=== PATIENT | female | born 1960 | race Caucasian/White ===

== ENCOUNTER 2019-05-12 15:30 | Emergency (ER) | payer OTHER ==
[~2019-05-12] VITALS: Ht 157.5 cm; Wt 68.4 kg
--- NOTE | 2019-05-12 16:01 | NUR ---
FIRST CONTACT WITH PT. PT SITTING UP IN [facility], NAD NOTED. PT REPORTS PERSISTANT DYSPNEA X ONE WEEK. SEEN IN [facility] FOR SAME ONE WEEK AGO, RX'D PREDNISONE AND INHALER WO IMPROVEMENT IN S/S. DENIES CP/FEVER/PRODUCTIVE COUGH/LE EDEMA OR PAIN/ORTHOPNEA. HX OF HTN AND HLD. NO PULMONARY HX; REMOTE SMOKING HX. PT SIDE LYING INITIALLY FOR COMFORT, ABLE TO ADJUST TO SEATED POSITION WO ASSISTANCE. EVEN/REGULAR RESPIRATIONS WITH INTERMITTENT FORCED INHALATION. PWD. LUNGS CLEAR TO AUSCULTATION. NO EDEMA NOTED. BP/SPO2/ECG MONITORING IN PLACE. NSR ON MONITOR.
[2019-05-12 16:31] LABS: BASOPHILS # (AUTO) 0.06 x10^3/uL (0-0.1); BASOPHILS % (AUTO) 1 % (0-1); EOSINOPHILS # (AUTO) 0.14 x10^3/uL (0-0.4); EOSINOPHILS % (AUTO) 2 % (1-7); LYMPHOCYTES # (AUTO) 3.42 x10^3/uL (1-3.4); LYMPHOCYTES % (AUTO) 37 % (22-44); MD NO; MEAN CORPUSCULAR HEMOGLOBIN 28.5 pg (27.0-34.8); MEAN CORPUSCULAR HGB CONC 33.8 g/dL (32.4-35.8); MEAN CORPUSCULAR VOLUME 84.2 fL (80-100); MEAN PLATELET VOLUME 7.3 fL (7.4-10.4); MONOCYTES # (AUTO) 0.59 x10^3/uL (0.2-0.8); MONOCYTES % (AUTO) 6 % (2-9); NEUTROPHILS # (AUTO) 5.07 x10^3/uL (1.8-6.8); NEUTROPHILS % (AUTO) 55 % (42-75); PLATELET COUNT 376 x10^3/uL (130-400); RED BLOOD COUNT 5.08 x10^6/uL (3.82-5.3); RED CELL DISTRIBUTION WIDTH 13.9 % (9.6-15.2)
[2019-05-12] MEDS ORDERED: AMLO2.5T5 PO (16:35)
[2019-05-12] MEDS ORDERED: LOVA10TA PO (16:35)
[2019-05-12 16:40] LABS: ANION GAP 8 mmol/L (5-15); CALCIUM 8.5 mg/dL (8.5-10.1); CHLORIDE 110 mmol/L (98-107); CREATININE 0.92 mg/dL (0.55-1.02)
[2019-05-12 16:44] LABS: TROPONIN I < 0.015 ng/mL (0.000-0.045)
--- NOTE | 2019-05-12 18:02 | NUR ---
DC EDUCATION PROVIDED, PT DEMONSTRATES UNDERSTANDING. PT AMBULATED STEADILY TO DC WITH RN AND SO. SO TO TRANSPORT PT HOME.
[2019-05-12 18:03] VITALS: BP 130/70
== END 2019-05-12 18:05 | disposition home or self-care (01) ==
LOC: ED 16:30
DX: R06.00 Dyspnea, unspecified (principal)
CPT/HCPCS: 36415; 71046; 80048; 82040; 84484; 85025; 85379; 93005; 99285